=== PATIENT | female | born 1975 | race Caucasian/White ===

== ENCOUNTER → 2016-10-21 | Outpatient (CLI) | payer OTHER ==
[~2016-10-21] MED LIST: IOPAMIDOL (ISOVUE 370) 100 ML BTL IV ONE
== END ==
LOC: CIMAGING 13:39
PROVIDERS: ATTEND Internal Medicine
DX: J40 Bronchitis, not specified as acute or chronic (principal)
CPT/HCPCS: 71275-PO; Q9967

== ENCOUNTER 2016-10-27 15:30 | Observation (INO) | payer OTHER ==
--- NOTE | 2016-10-27 15:54 | CPEKG ---
Heart Rate: 74 RR Interval: 811 P-R Interval: 200 QRSD Interval: 84 QT Interval: 396 QTC Interval: 440 P Maybee: 18 QRS Maybee: 3 T Wave Maybee: 68 EKG Severity - BORDERLINE ECG - EKG Impression: SINUS RHYTHM EKG Impression: LOW VOLTAGE IN FRONTAL LEADS EKG Impression: BORDERLINE T ABNORMALITIES, ANT-LAT LEADS Electronically Signed By: Gabino Alexander 27-Oct-2016 21:34:07
--- NOTE | 2016-10-27 15:57 | EDPHY ---
H & P Stated Complaint: 4-6 weeks sob/cp sent by for admission through ed HPI/ROS: HPI CHIEF COMPLAINT: Chest Pain, shortness of breath, dyspnea on exertion HISTORY OF PRESENT ILLNESS: This patient very pleasant 41-year-old female significant past medical history for arthritis, pulmonary embolism, no longer on intake coagulation, she presents emergency room with 4 weeks of progressively worsening dyspnea on exertion chest discomfort, dyspnea on exertion, PND, peripheral edema, she has had extensive workup for this including blood work, recent CT angiogram that showed no pulmonary embolism, she also tells me she was at recent [facility] for chest discomfort had a workup that was normal. She followed up with the primary care doctor primary care doctor referred her here to the emergency room for admission and chest pain evaluation. Upon arrival here she does complain of shortness of breath, chest pain left- sided stabbing pain she tells me feels like her previous pulmonary embolism. She also endorses cough nonproductive. Endorses peripheral edema. Dyspnea on exertion and PND. Past Medical History: Arthritis, PE, pneumonia Past Surgical History: No recent surgical history Social History: Denies daily use of drugs alcohol tobacco products Family History: A sling for positive coronary artery disease in her mom extensive cardiac history in her family. ROS REVIEW OF SYSTEMS: A comprehensive 10 point review of systems is otherwise negative aside from elements mentioned in the history of present illness. Exam Constitutional appears well nontoxic triage nursing summary reviewed, vital signs reviewed, awake/alert. Eyes normal conjunctivae and sclera, EOMI, PERRLA. HENT normal inspection, atraumatic, moist mucus membranes, no epistaxis, neck supple/ no meningismus, no raccoon eyes. Respiratory clear to auscultation bilaterally, normal breath sounds, no respiratory distress, no wheezing. Cardiovascular rate normal, regular rhythm, no murmur, no edema, distal pulses normal. Gastrointestinal soft, non-tender, no rebound, no guarding, normal bowel sounds, no distension, no pulsatile mass. Genitourinary no CVA tenderness. Musculoskeletal no midline vertebral tenderness, full range of motion, no calf swelling, no tenderness of extremities, no meningismus, good pulses, neurovascularly intact. Skin pink, warm, & dry, no rash, skin atraumatic. Neurologic awake, alert and oriented x 3, AAOx3, moves all 4 extremities equally, motor intact, sensory intact, CN II-XII intact, normal cerebellar, normal vision, normal speech. Psychiatric normal mood/affect. Heme/Lymph/Immune no lymphadenopathy. Differential diagnosis includes but is not limited to: ACS, atypical chest pain , pneumothorax, pneumonia, pulmonary embolism, aortic dissection, congestive heart failure, tumor, musculoskeletal pain, esophageal pain, GERD, peptic ulcer disease, pancreatitis Medical Decision Making: Plan for this patient full alarm security or surveillance monitor, IV establishment, EKG, chest x-ray, blood work including D-dimer. Will review her CT angiogram from outpatient [facility]. Re-evaluation: EKG interpretation by me on record in [facility] system. Impression time of EKG 1552, this is sinus rhythm rate of 74, T-wave abnormality V1 V2 V3 concerning for ischemia. Otherwise no ST elevation. Micro amplitude. ED x-ray chest two view: Negative for acute cardiopulmonary disease. Image interpreted myself. 1738: Re-evaluation this time patient is chest pain-free. EKG shows T-wave inversions V1 V2 V3 otherwise unremarkable. Trop negative D-dimer negative x- ray reviewed. Vital signs are stable. She is allergic to NSAIDs and aspirin cannot take aspirin. She received morphine for chest pain. Patient be admitted to the hospitalist service for a chest pain evaluation and rule out. Further evaluation of dyspnea on exertion. Patient agreeable for this plan. Spoke with Dr. Padron who accepts. Source: Patient - Personal History LMP (Females 10-55): 15-21 Days Ago Current Tetanus/Diphtheria Vaccine: Yes Tetanus Vaccine Date: 2006 - Medical/Surgical History Hx Asthma: No Hx Chronic Respiratory Disease: Yes Hx Diabetes: No Hx Cardiac Disease: No Hx Renal Disease: No Hx Cirrhosis: No Hx Alcoholism: No Hx HIV/AIDS: No Hx Splenectomy or Spleen Trauma: No Other PMH: hypertension,hypothyroid,sciatica,migraines,fibromyalgi,PE/ AUTO IMMUNE DISORDER/PE, chronic pain, hypoxemia, connective tissue disorder - Social History Smoking Status: Never smoked Constitutional: Initial Vital Signs O2 Sat (%) 97 10/27/16 15:30 O2 Delivery Mode Room Air O2 (L/minute) 2 Allergies/Adverse Reactions: ertapenem Allergy (Verified 01/22/16 19:03) Hives NSAIDS (Non-Steroidal Anti-Inflamma Allergy (Verified 01/22/16 19:03) omeprazole [From Prilosec] Allergy (Verified 01/22/16 19:03) omeprazole magnesium [From Prilosec] Allergy (Verified 01/22/16 19:03) penicillin G Allergy (Verified 01/22/16 19:03) Penicillins Allergy (Verified 01/22/16 19:03) rofecoxib [From Vioxx] Allergy (Verified 01/22/16 19:03) rocephin Allergy (Uncoded 11/18/15 17:57) Hives Home Medications: Medication Instructions Recorded Diazepam [Valium 5 MG (*)] 5 - 10 mg PO HS PRN 11/06/14 Gabapentin [Neurontin 300 MG (*)] 600 mg PO DAILY 11/06/14 FEXOFENADINE HCL 180 mg PO DAILY 06/08/15 Herbals/Supplements -Info Only 1 tab PO DAILY 06/08/15 ONDANSETRON HCL 8 mg PO BID PRN 06/08/15 Duloxetine HCl 60 mg PO DAILY 06/10/15 Hydrocodone/Acetaminophen 1 - 2 tab PO Q6 PRN #30 tablet 06/11/15 [Hydrocodon-Acetaminoph 7.5-325] Albuterol [Ventolin Hfa Inhaler] 2 puffs IH Q4 PRN #1 mdi 08/19/15 Botox 1 dose SC .EVERY 3 MONTHS 10/01/15 Gabapentin [Neurontin 300 MG (*)] 300 mg PO TID@,,10/20/15 Rizatriptan Benzoate [Maxalt 10mg] 10 mg PO PRN PRN 10/20/15 Fluticasone Nasal [Flonase Nasal 11/18/15 Hayes] Albuterol 10/27/16 Belsomra 10/27/16 Lasix 10/27/16 Triamterene 10/27/16 VITAMIN D 10/27/16 morphINE 10/27/16 Medical Decision Making - Diagnostics Imaging Results: Imaging Impressions Chest X-Ray 10/27/16 16:00 Impression: Normal. No source for chest pain identified. - Data Points Laboratory Results: Laboratory Results 10/27/16 16:04 10/27/16 16:04 10/27/16 10/27/16 10/27/16 16:04 16:04 16:04 WBC 9.43 10^3/uL 10^3/uL (3.80-9.50) RBC 4.58 10^6/uL 10^6/uL (4.18-5.33) Hgb 13.9 g/dL g/dL (12.6-16.3) Hct 43.7 % % (38.0-47.0) MCV 95.4 fL fL (81.5-99.8) MCH 30.3 pg pg (27.9-34.1) MCHC 31.8 g/dL L g/dL (32.4-36.7) RDW 13.2 % % (11.5-15.2) Plt Count 326 10^3/uL 10^3/uL (150-400) MPV 9.4 fL fL (8.7-11.7) Neut % (Auto) 53.9 % % (39.3-74.2) Lymph % (Auto) 35.0 % % (15.0-45.0) Real % (Auto) 8.1 % % (4.5-13.0) Eos % (Auto) 2.0 % % (0.6-7.6) Baso % (Auto) 0.7 % % (0.3-1.7) Nucleat RBC Rel Count 0.0 % % (0.0-0.2) Absolute Neuts (auto) 5.08 10^3/uL 10^3/uL (1.70-6.50) Absolute Lymphs (auto) 3.30 10^3/uL H 10^3/uL (1.00-3.00) Absolute Monos (auto) 0.76 10^3/uL 10^3/uL (0.30-0.80) Absolute Eos (auto) 0.19 10^3/uL 10^3/uL (0.03-0.40) Absolute Basos (auto) 0.07 10^3/uL 10^3/uL (0.02-0.10) Absolute Nucleated RBC 0.00 10^3/uL 10^3/uL (0-0.01) Immature Gran % 0.3 % % (0.0-1.1) Immature Gran # 0.03 10^3/uL 10^3/uL (0.00-0.10) PT 12.3 SEC SEC (12.0-15.0) INR 0.92 (0.83-1.16) APTT 25.1 SEC SEC (23.0-38.0) D-Dimer < 0.27 ug/mLFEU ug/mLFEU (0.00-0.50) Sodium 141 mEq/L mEq/L (134-144) Potassium 3.9 mEq/L mEq/L (3.5-5.2) Chloride 97 mEq/L mEq/L (97-110) Carbon Dioxide 32 mEq/l H mEq/l (22-31) Anion Gap 12 mEq/L mEq/L (8-16) BUN 10 mg/dL mg/dL (7-23) Creatinine 0.7 mg/dL mg/dL (0.6-1.0) Estimated GFR > 60 Glucose 118 mg/dL H mg/dL (70-100) Calcium 10.0 mg/dL mg/dL (8.5-10.4) Magnesium 2.0 mg/dL mg/dL (1.6-2.3) Total Bilirubin 0.6 mg/dL mg/dL (0.1-1.4) Conjugated Bilirubin 0.5 mg/dL mg/dL (0.0-0.5) Unconjugated Bilirubin 0.1 mg/dL mg/dL (0.0-1.1) AST 25 IU/L IU/L (14-46) ALT 14 IU/L IU/L (9-52) Alkaline Phosphatase 72 IU/L IU/L (38-126) Creatine Kinase 67 IU/L IU/L (0-156) CK-MB (CK-2) Fraction 0.37 ng/mL ng/mL (0-3.19) Troponin I < 0.012 ng/mL ng/mL (0-0.034) NT-Pro-B Natriuret Pep 40 pg/mL pg/mL (0-125) Total Protein 8.0 g/dL g/dL (6.3-8.2) Albumin 4.5 g/dL g/dL (3.5-5.0) Medications Given: Discontinued Medications Aspirin Buffered (Aspirin Ec) 325 mg PO EDNOW ONE Stop: 10/27/16 16:14 Last Admin: 10/27/16 16:26 Dose: Not Given Sodium Chloride (Ns) 1,000 mls @ 0 mls/hr IV ONCE ONE PRN Reason: Wide Open Stop: 10/27/16 16:00 Last Admin: 10/27/16 16:30 Dose: 1,000 mls Morphine Sulfate (Morphine) 4 mg IVP EDNOW ONE Stop: 10/27/16 16:27 Last Admin: 10/27/16 16:49 Dose: 4 mg Ondansetron HCl (Zofran) 4 mg IVP EDNOW ONE Stop: 10/27/16 16:27 Last Admin: 10/27/16 16:30 Dose: 4 mg Departure - Departure Disposition: [facility] Inpatient Acute Clinical Impression: MARTI (dyspnea on exertion) Chest pain Qualifiers: Chest pain type: unspecified Qualified Code(s): R07.9 - Chest pain, unspecified Condition: Fair Referrals: Danny Landers MD [Primary Care Provider] - As per Instructions
[2016-10-27] MEDS ORDERED: NS 1,000 ML IV ONE (15:59)
[2016-10-27] MEDS ORDERED: ASPIRIN EC 325 MG TAB PO ONE (16:13)
[2016-10-27 16:16] LABS: % IMMATURE GRANULYOCYTES 0.3 % (0.0-1.1); ABSOLUTE IMMATURE GRANULOCYTES 0.03 10^3/uL (0.00-0.10); ADD DIFF? NO; ADD MORPH? NO; ADD SCAN? NO; ATYPICAL LYMPHOCYTE FLAG 20 (0-99); FRAGMENT RBC FLAG 0 (0-99); HEMATOCRIT 43.7 % (38.0-47.0); HEMOGLOBIN 13.9 g/dL (12.6-16.3); LEFT SHIFT FLG 0 (0-99); LIPEMIA HEMOLYSIS FLAG 80 (0-99); MEAN CELL HEMOGLOBIN 30.3 pg (27.9-34.1); MEAN CELL HEMOGLOBIN CONCENTR. 31.8 g/dL (32.4-36.7); MEAN CELL VOLUME 95.4 fL (81.5-99.8); MEAN PLATELET VOLUME 9.4 fL (8.7-11.7); PLATELET CLUMPS FLAG 10 (0-99); PLATELET COUNT 326 10^3/uL (150-400); RED BLOOD CELL COUNT 4.58 10^6/uL (4.18-5.33); RED CELL DISTRIBUTION WIDTH 13.2 % (11.5-15.2)
[2016-10-27] MEDS ORDERED: ONDANSETRON 4 MG/2 ML VIAL IVP ONE (16:26)
[2016-10-27 16:40] LABS: ALANINE AMINOTRANSFERASE 14 IU/L (9-52); ALBUMIN 4.5 g/dL (3.5-5.0); ALKALINE PHOSPHATASE 72 IU/L (38-126); ANION GAP 12 mEq/L (8-16); ASPARTATE AMINOTRANSFERASE 25 IU/L (14-46); BILIRUBIN,TOTAL 0.6 mg/dL (0.1-1.4); BILIRUBIN-CONJUGATED 0.5 mg/dL (0.0-0.5); BILIRUBIN-UNCONJUGATED 0.1 mg/dL (0.0-1.1); CARBON DIOXIDE 32 mEq/l (22-31); CHLORIDE 97 mEq/L (97-110); CREATININE 0.7 mg/dL (0.6-1.0); GLOMERULAR FILTRATION RATE > 60; GLUCOSE 118 mg/dL (70-100); POTASSIUM 3.9 mEq/L (3.5-5.2); SODIUM 141 mEq/L (134-144)
[2016-10-27 16:41] LABS: APTT 25.1 SEC (23.0-38.0); INR 0.92 (0.83-1.16); PROTIME(PATIENT) 12.3 SEC (12.0-15.0)
[2016-10-27 16:51] LABS: CREATINE KINASE-MB FRACTION 0.37 ng/mL (0-3.19); TROPONIN I < 0.012 ng/mL (0-0.034)
[2016-10-27] MEDS ORDERED: FLUTICASONE NASAL 120 SPRAYS/16 GM MDI EACHNARE PRN (20:42)
[2016-10-27] MEDS ORDERED: ALBUTEROL 60 PUFFS/8 GM MDI IH PRN (20:42)
[2016-10-27] MEDS ORDERED: Rizatriptan Benzoate [Maxalt] 10 MG PO PRN (20:42)
[2016-10-27] MEDS ORDERED: ONDANSETRON DISINTEGRATING 4 MG TAB PO PRN (20:51)
[2016-10-27] MEDS ORDERED: Suvorexant [Belsomra] 10 MG PO SCH (21:00)
[2016-10-27] MEDS ORDERED: morphINE SR 30 MG TAB PO SCH (21:00)
[2016-10-27] MEDS ORDERED: DIAZEPAM 5 MG TAB PO SCH (21:00)
--- NOTE | 2016-10-27 21:21 | GHP ---
[f rep st] HISTORY AND PHYSICAL DATE OF ADMISSION: 10/27/2016 The patient is a pleasant 41-year-old female with a history of fibromyalgia versus some connective tissue disorder, as well as obesity and a strong family history of coronary disease, presents to the hospital with dyspnea on exertion it sounds like that has gone on for a number of weeks. Recently, she had a CTA of her chest that showed no evidence of pulmonary emboli. She has had PE in the past. She had interval decrease in size of her prominent lymph nodes. She had no other parenchymal lung disease. She had an echocardiogram at [facility] yesterday, the results of that are pending. She in the past has had on stress test including 1 in February that was reportedly normal. She denies history of exertional chest pain, but rather has exertional dyspnea and finds that really from walking from the car to the house becomes short of breath. Notably her weight has gone down a little bit. Her serum bicarb has risen from less than 2 years ago to numbers in the high 20s from numbers in the low 30s. She does take Lasix every other day. She has not had fever, chills, sputum, cough. She has not smoked cigarettes or other things. She has a puppy that sounds like is somewhat new in her house, although she lived with dogs previously. She is not wheezing. She has occasional lower extremity edema. She describes her mother as having "idiopathic edema." REVIEW OF SYSTEMS: Complete 10-point review of systems conducted negative except as noted in the HPI. PAST MEDICAL HISTORY: 1. Likely fibromyalgia previously diagnosed as inflammatory disease, inflammatory polyarthritis, had been on Humira. 2. Chronic pain with continuous narcotic dependency. 3. Migraines. 4. Lower extremity edema. 5. Hypertension. 6. She had an episode of sepsis here while she was on Humira with pneumonia. 7. She had an echocardiogram done 2 years ago, at which time the pulmonary artery pressure could not be adequately estimated. ALLERGIES: Ertapenem, NSAIDs, omeprazole, penicillin, Vioxx, and Rocephin. MEDICATIONS: At home are albuterol, cetirizine, vitamin D, diazepam, duloxetine , famotidine, fluticasone nasal spray, gabapentin, morphine 30 q.h.s. scheduled , triamterene/hydrochlorothiazide, rizatriptan, suvorexant, propranolol. FAMILY HISTORY: Notable for coronary disease. SOCIAL HISTORY: Rare alcohol. Lives with her boyfriend or in [place]. No tobacco. PHYSICAL EXAM: VITAL SIGNS: Temp 36.7, blood pressure 127/85, pulse 70, breathing 20 times a minute, 98% on room air. GENERAL: No acute distress. HEENT: Sclerae anicteric. Oropharynx clear. Mucous membranes are moist. NECK : Supple without lymphadenopathy or JVD. LUNGS: Clear to auscultation bilaterally. HEART: S1, S2. ABDOMEN: Soft, nontender, nondistended. LOWER EXTREMITIES: Without edema. Calves nontender. SKIN: Without rash. NEUROLOGIC: Grossly nonfocal. LABS: D-dimer is less than 0.27. Coag's are normal. White count 9, hematocrit 43, platelets 326,000. Sodium 141, potassium 2.9, chloride 97, bicarb 32, BUN 10, and creatinine 0.7. LFTs normal. Troponin less than 0.012. BNP is 40. Chest x-ray interpreted by me shows no acute cardiopulmonary disease. EKG interpreted by me shows sinus at 74 with normal axis and intervals. No ST or T-wave changes. I discussed the case Dr. Gabino Alexander. ASSESSMENT AND PLAN: A 41-year-old female with family history of coronary disease presents with dyspnea. 1. Dyspnea. I have a low suspicion for angina given her family history. I think it is reasonable to check a stress test in the morning. Given her rising bicarb, she may have obesity hypoventilation syndrome. She also has recently been diagnosed with obstructive sleep apnea. My greatest sense is this is a combination of deconditioning with perhaps some pulmonary hypertension and obesity hypoventilation syndrome. She is not wheezing on exam. She does not have parenchymal infiltrates on her CT so I think further pulmonary evaluation as an inpatient is not going to be all that helpful. We can do some bedside PFTs, which I have ordered, which may give us a sense of whether she has restrictive lung disease from her size, which I suspect she does. 2. Continuous pain. Will continue her medications. 3. Migraines. Continue her medications. 4. Prophylaxis. Pharmacologic prophylaxis indicated. Start enoxaparin daily. 5. Disposition. Observation status. /[id number]/MODL MTDD
[2016-10-27] MEDS: GABAPENTIN 300 MG CAP PO SCH (21:25)
[2016-10-27] MEDS: FAMOTIDINE 20 MG TAB PO SCH (21:25)
[2016-10-27] MEDS ORDERED: PNEUMOCOCCAL 0.5ML VACCINE VIAL IM ONE (23:12)
[2016-10-28] MEDS ORDERED: PNEUMOCOCCAL 0.5ML VACCINE VIAL IM ONE (05:30)
[2016-10-28] MEDS: GABAPENTIN 300 MG CAP PO SCH (08:33)
[2016-10-28] MEDS: FAMOTIDINE 20 MG TAB PO SCH (08:36)
[2016-10-28] MEDS: HYDROCODONE/APAP 10/325 TAB PO PRN ×2 (08:42→14:59)
[2016-10-28] MEDS ORDERED: PROPRANOLOL SR 80 MG CAP PO SCH (09:00)
[2016-10-28] MEDS ORDERED: CETIRIZINE 10 MG TAB PO SCH (09:00)
[2016-10-28] MEDS ORDERED: DULoxetine 30 MG CAP PO SCH (09:00)
[2016-10-28] MEDS ORDERED: Herbals/Supplements -Info Only PO SCH (09:00)
[2016-10-28] MEDS ORDERED: ENOXAPARIN 40 MG/0.4 ML SYR SC SCH (09:00)
[2016-10-28] MEDS ORDERED: REGADENOSON 0.4 MG/5 ML SYR IVP ONE (09:38)
[2016-10-28] MEDS ORDERED: GABAPENTIN 300 MG CAP PO SCH (12:00)
--- NOTE | 2016-10-28 13:12 | CPR ---
[f rep st] NONINVASIVE CARDIAC PROCEDURE REPORT PROCEDURE PERFORMED: Lexiscan injection of Lexiscan MPI study. SUPERVISING AIR GRINDER: Dr. Miko Álvarez. INDICATION FOR PROCEDURE: Ongoing dyspnea on exertion and an abnormal electrocardiogram. PRE: After obtaining informed consent and ensuring patient's n.p.o. status of caffeine for greater than 12 hours, the patient was placed on electrocardiogram. Initial EKG showing sinus rhythm, first -degree A-V block, inverted T-waves in V1 and V2, flattened T-waves in V3. The patient denies havin g chest pain or shortness of breath at this time, current blood pressure 116/70, saturation 92% on r oom air. INJECTION: Patient was given Lexiscan slow IV push, followed by nuclear isotope. Patient did repor t some mild dyspnea within 1 minute of injection. She was given a caffeinated beverage, and within 5 minutes symptoms soon subsided. With injection, no significant EKG changes, except elevated rate up to 74 beats per minute. She did have a mild drop in her blood pressure down to 100/70 within 1 m inute of injection, but within 4 minutes blood pressure was back to baseline. Her vital signs are s table, she is finishing post-stress MPI imaging in Nuclear Medicine at this time. IMPRESSION: A 41-year-old female with ongoing dyspnea on exertion, with abnormal electrocardiogram, undergoing Lexiscan MPI study for evaluation of ischemia. No significant EKG change was noted with injection. Mild drop in blood pressure, which improved. Patient did report increased shortness of breath postinjection, but subsided within 5 minutes. Post MPI imaging is pending. /[id number]/MODL
[2016-10-28 14:57] VITALS: BP 105/65; PULSE 61; RESP 20; TEMP 98.1; O2SAT 95
--- NOTE | 2016-10-28 15:09 | GDS ---
[f rep st] DISCHARGE SUMMARY DISCHARGE DIAGNOSES: 1. Dyspnea on exertion. 2. History of fibromyalgia, inflammatory polyarthritis. 3. Chronic pain with chronic continuous opioid dependency. 4. History of migraines. 5. Lower extremity edema. 6. Hypertension. CONSULTANTS: None. HOSPITAL COURSE BY PROBLEM: Exertional dyspnea: The patient was placed on observation where we cyc led her troponin, which were negative x3. She had a myocardial perfusion scan done on day of discha rge, revealed a normal ejection fraction of 77% with no definitive evidence for myocardial ischemia. On day of discharge the patient states she is feeling better. She is agreeable to discharge home, and plans to follow up with her assistant to the dean, Dr. Nnamdi Jordan, for outpatient PFT's. PHYSICAL EXAM: VITAL SIGNS: On day of discharge blood pressure 104/61, pulse of 55, O2 saturation was 90% on room air, temperature afebrile. GENERAL: In no acute distress. HEART: S1 and S2. MARLENA GS: Clear. ABDOMEN: Soft. EXTREMITIES: No edema. LABORATORY DATA: Pertinent labs and studies: Chest x-ray done 10/27/2016 was normal, D-dimer was n egative, making blood clot unlikely. DISCHARGE MEDICATIONS: Please refer to discharge medication reconciliation for details. DISCHARGE INSTRUCTIONS: The patient will be discharged from the hospital, where she should continue to use oxygen at home and follow up with Dr. Nnamdi Jordan of Pulmonology for PFT's. She is instruc [place] to seek medical attention if her shortness of breath worsens. /[id number]/MODL
[2016-10-29] MEDS ORDERED: TRIAMTERENE/HCTZ 37.5/25 1 EACH TAB PO SCH (09:00)
[2016-11-01] MEDS ORDERED: CHOLECALCIFEROL VIT D3 50,000 UNIT CAP PO SCH (09:00)
== END 2016-10-28 16:02 | disposition home or self-care (01) ==
LOC: F2W 20:42
PROVIDERS: ADMIT Internal Medicine; ATTEND Family Medicine
DX: R06.09 Other forms of dyspnea (principal); M79.7 Fibromyalgia; G89.29 Other chronic pain; R60.0 Localized edema; I10 Essential (primary) hypertension; E66.9 Obesity, unspecified; Z86.711 Personal history of pulmonary embolism; G47.33 Obstructive sleep apnea (adult) (pediatric); Z68.41 Body mass index [BMI] 40.0-44.9, adult; Z82.49 Family history of ischemic heart disease and other diseases of the circulatory system; Z88.0 Allergy status to penicillin; Z79.891 Long term (current) use of opiate analgesic; Z23 Encounter for immunization
CPT/HCPCS: 71020; 78452; 90471; 93005; 93017; A9500; G0378; 96374; G0009; J1650; J2405; J2785

== ENCOUNTER → 2017-05-25 | Outpatient (CLI) | payer BC | LOC: FIMAGING 15:23 | PROVIDERS: ATTEND Internal Medicine | DX: M47.896 Other spondylosis, lumbar region (principal) ==

== ENCOUNTER 2017-07-12 18:41 | Emergency (ER) | payer BC ==
[2017-07-12 18:53] VITALS: TEMP 98.1
[2017-07-12 19:15] LABS: PLATELET COUNT 301 10^3/uL (150-400)
[2017-07-12 19:26] LABS: INR 0.91 (0.83-1.16); PROTIME(PATIENT) 12.5 SEC (12.0-15.0)
--- NOTE | 2017-07-12 19:29 | CPEKG ---
Heart Rate: 58 RR Interval: 1034 P-R Interval: 196 QRSD Interval: 92 QT Interval: 440 QTC Interval: 433 P [place]: 8 QRS [place]: 7 T Wave [place]: 23 EKG Severity - ABNORMAL ECG - EKG Impression: SINUS RHYTHM EKG Impression: LOW VOLTAGE IN FRONTAL LEADS EKG Impression: ABNORMAL T, CONSIDER ISCHEMIA, ANTERIOR LEADS EKG Impression: UNCHANGED IN COMPARISON TO PRIOR Electronically Signed By: Bang Lim 14-Jul-2017 12:52:35
--- NOTE | 2017-07-12 19:50 | EDPHY ---
HPI/HX/ROS/PE/MDM Narrative: CHIEF COMPLAINT: "Chest pain and shortness of breath" HPI: The patient is a 41 y/o female arriving with her family member complaining of constant chest pain and hypoxemia since Monday, 5 days ago. She has a history of fibromyalgia, chronic pain with continuous opioid dependence, PE, and prior episode of sepsis during pneumonia infection. She has had intermittent chest pain she associates with a "chest cold" for the last week. On Monday she noticed her O2 saturation was lower than normal and her chest pain became constant. Her pain is located over her left anterior chest and feels the same as her prior PE. She says at some point her O2 was 70% and she became confused and didn't know where she was. She was not evaluated medically at that time. Since then she's felt generally dyspneic and sluggish with any exertion. She denies fever, vomiting, abdominal pain, diarrhea, recent trauma. REVIEW OF SYSTEMS: Aside from elements discussed in the HPI, a comprehensive 10-point review of systems was reviewed and is negative. 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 Prior medical records reviewed including admission 10/27/16 for exertional dyspnea. SOCIAL HISTORY: Partner at bedside. Lives in [place]. No tobacco. 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 Obese. ENT:Eyes are normal to inspection. ENT inspection normal. Neck: Normal inspection. Full range of motion. Respiratory:No respiratory distress. Breath sounds normal bilaterally. Cardiovascular: Regular rate and rhythm. Strong peripheral pulses. Normal cap refill. Abdomen:The abdomen is nontender to palpation. There are no peritoneal signs. There are normal bowel sounds. Back: Normal to inspection. No tenderness to palpation. Skin: Normal color. No rash. Warm and dry. Extremities: Normal appearance. Full range of motion. Neuro: Oriented x3. Normal motor function. Normal sensory function. ED Course: This is a 41 y/o female with history of chronic pain, obesity, and PE who presents with a 5-day history of constant chest pain and exertional dyspnea following 2 weeks of intermittent chest discomfort during a "chest cold." Pain is not reproducible on exam. Plan for cardiac and respiratory work up with IV, labs, EKG, chest x-ray. The 12 lead EKG was interpreted by myself. See hard copy and/or "tracemaster" electronic copy for interpretation. Chest x-ray negative for acute process. D-dimer is elevated 0.81. Discussed risks and benefits of imaging with her particularly since she has had several prior chest CTAs. She has opted to proceed with CTA to rule out PE. CTA is negative for PE. Reevaluated patient and discussed work up. I have not found an obvious cause for her symptoms. She would like to go home tonight and plans to follow up with her doctors. I've referred her to pulmonology for follow up evaluation as well. Return precautions discussed. She is comfortable with this plan. - Data Points Imaging Results: Imaging Impressions Chest X-Ray 07/12/17 19:09 Impression: The chest is negative for acute cardiopulmonary abnormality. Chest/Thorax CTA 07/12/17 20:04 Impression: 1. No evidence of pulmonary embolic disease. 2. See above report for additional findings. Results called and discussed with José Cisneros MD on 07/12/2017 at 21:28 Imaging: Discussed imaging studies w/ call or contact centre manager Radiologist, I viewed and interpreted images myself Laboratory Results: Laboratory Results 07/12/17 19:07 07/12/17 19:07 07/12/17 07/12/17 07/12/17 19:07 19:07 19:07 WBC 8.88 10^3/uL 10^3/uL (3.80-9.50) RBC 4.03 10^6/uL L 10^6/uL (4.18-5.33) Hgb 13.0 g/dL g/dL (12.6-16.3) Hct 39.7 % % (38.0-47.0) MCV 98.5 fL fL (81.5-99.8) MCH 32.3 pg pg (27.9-34.1) MCHC 32.7 g/dL g/dL (32.4-36.7) RDW 12.8 % % (11.5-15.2) Plt Count 301 10^3/uL 10^3/uL (150-400) MPV 8.8 fL fL (8.7-11.7) Neut % (Auto) 47.6 % % (39.3-74.2) Lymph % (Auto) 40.4 % % (15.0-45.0) [place] % (Auto) 8.3 % % (4.5-13.0) Eos % (Auto) 2.7 % % (0.6-7.6) Baso % (Auto) 0.7 % % (0.3-1.7) Nucleat RBC Rel Count 0.0 % % (0.0-0.2) Absolute Neuts (auto) 4.22 10^3/uL 10^3/uL (1.70-6.50) Absolute Lymphs (auto) 3.59 10^3/uL H 10^3/uL (1.00-3.00) Absolute Monos (auto) 0.74 10^3/uL 10^3/uL (0.30-0.80) Absolute Eos (auto) 0.24 10^3/uL 10^3/uL (0.03-0.40) Absolute Basos (auto) 0.06 10^3/uL 10^3/uL (0.02-0.10) Absolute Nucleated RBC 0.00 10^3/uL 10^3/uL (0-0.01) Immature Gran % 0.3 % % (0.0-1.1) Immature Gran # 0.03 10^3/uL 10^3/uL (0.00-0.10) PT 12.5 SEC SEC (12.0-15.0) INR 0.91 (0.83-1.16) APTT 26.5 SEC SEC (23.0-38.0) D-Dimer 0.81 ug/mLFEU H ug/mLFEU (0.00-0.50) Sodium 141 mEq/L mEq/L (135-145) Potassium 4.1 mEq/L mEq/L (3.5-5.2) Chloride 97 mEq/L mEq/L (97-110) Carbon Dioxide 33 mEq/l H mEq/l (22-31) Anion Gap 11 mEq/L mEq/L (8-16) BUN 13 mg/dL mg/dL (7-23) Creatinine 0.7 mg/dL mg/dL (0.6-1.0) Estimated GFR > 60 Glucose 141 mg/dL H mg/dL (70-100) Calcium 9.6 mg/dL mg/dL (8.5-10.4) Troponin I < 0.012 ng/mL ng/mL (0.000-0.034) General Time Seen by Provider: 07/12/17 19:03 Initial Vital Signs: Initial Vital Signs Temperature (C) 36.7 C 07/12/17 18:51 Heart Rate 66 07/12/17 18:51 Respiratory Rate 18 07/12/17 18:51 Blood Pressure 146/80 H 07/12/17 18:51 O2 Sat (%) 83 L 07/12/17 18:51 O2 Delivery Mode Room Air O2 (L/minute) 2 Allergies/Adverse Reactions: ertapenem Allergy (Verified 07/12/17 18:49) Hives NSAIDS (Non-Steroidal Anti-Inflamma Allergy (Verified 07/12/17 18:49) omeprazole [From Prilosec] Allergy (Verified 07/12/17 18:49) omeprazole magnesium [From Prilosec] Allergy (Verified 07/12/17 18:49) onabotulinumtoxinA [From Botox] Allergy (Verified 07/12/17 18:49) penicillin G Allergy (Verified 07/12/17 18:49) Penicillins Allergy (Verified 07/12/17 18:49) rofecoxib [From Vioxx] Allergy (Verified 07/12/17 18:49) rocephin Allergy (Uncoded 11/18/15 17:57) Hives Home Medications: Medication Instructions Recorded Albuterol [Proventil Inhaler HFA 2 - 3 puffs IH DAILY PRN 10/27/16 (*)] Botulinum Toxin Type A [Botox] 1 dose SC .EVERY 3 MONTHS 10/27/16 Cholecalciferol Vit D3 [Vitamin D3 50,000 unit PO TU 10/27/16 (*)] DULoxetine [Cymbalta 30 MG (*)] 90 mg PO DAILY 10/27/16 Diazepam [Valium 5 MG (*)] 5 - 10 mg PO HS 10/27/16 Fexofenadine HCl 180 mg PO DAILY 10/27/16 Fluticasone Nasal [Flonase Nasal 1 sprays [place] DAILY PRN 10/27/16 [place]] Furosemide [Lasix 40 MG (*)] 40 mg PO Q2D 10/27/16 Gabapentin [Neurontin 300 MG (*)] 300 mg PO DAILY@12 10/27/16 Gabapentin [Neurontin 300 MG (*)] 600 mg PO BID@,10/27/16 Herbals/Supplements -Info Only 1 ea PO DAILY 10/27/16 Hydrocodone/Acetaminophen [[place] 1 each PO 5XD PRN 10/27/16 7.5-325 Tablet] Morphine Sulfate [Ms Contin] 30 mg PO HS 10/27/16 Ondansetron [Zofran Odt] 8 mg PO BID PRN 10/27/16 Propranolol HCl [Inderal Xl] 80 mg PO DAILY 10/27/16 Ranitidine HCl [Zantac] 300 mg PO BID 10/27/16 Rizatriptan Benzoate [Maxalt] 10 mg PO AD PRN MDD 3 TABS PER DAY 10/27/16 Suvorexant [Belsomra] 10 mg PO HS 10/27/16 Triamterene/Hydrochlorothiazid 1 each PO Q2D 10/27/16 [Triamterene-Hctz 37.5-25 mg Tb] Departure - Departure Disposition: Home, Routine, Self-Care Clinical Impression: MARTI (dyspnea on exertion) Chest pain Qualifiers: Chest pain type: other chest pain Qualified Code(s): R07.89 - Other chest pain Condition: Good Instructions: Chest Pain (ED), Dyspnea (ED) Additional Instructions: Please follow up with 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 Return to the ED for worsening of condition. Referrals: Danny Landers MD [Primary Care Provider] - As per Instructions Nnamdi Jordan MD [Medical Doctor] - As per Instructions Report Scribed for: José Cisneros Report Scribed by: Azeb Rae Date of Report: 07/12/17 Time of Report: 20:02 Physician Review and Approval Statement: Portions of this note were transcribed by an ED scribe. I personally performed the history, physical exam, and medical decision making; and confirm the accuracy of the information in the transcribed note.
[2017-07-12 20:09] VITALS: O2SAT 96
[2017-07-12] MEDS ORDERED: IOPAMIDOL (ISOVUE 370) 100 ML BTL IV ONE (20:17)
[2017-07-12 21:12] VITALS: BP 118/64; PULSE 59; RESP 24
== END 2017-07-12 21:49 | disposition home or self-care (01) ==
DX: R07.89 Other chest pain (principal); R06.00 Dyspnea, unspecified
CPT/HCPCS: Q9967

== ENCOUNTER → 2017-10-13 | Outpatient (CLI) | payer BC | LOC: CIMAGING 14:31 | PROVIDERS: ATTEND Registered Nurse | DX: J06.9 Acute upper respiratory infection, unspecified (principal); J98.11 Atelectasis; I26.99 Other pulmonary embolism without acute cor pulmonale | CPT/HCPCS: 71046-PO ==

== ENCOUNTER → 2018-06-27 | Outpatient (CLI) | payer BC | LOC: FIMAGING 18:08 | PROVIDERS: ATTEND Internal Medicine | DX: M79.672 Pain in left foot (principal) ==